=== PATIENT | female | born 1990 | race Caucasian/White ===

== ENCOUNTER 2019-07-29 11:09 | Emergency (ER) | payer OTHER, SELFPAY ==
[2019-07-29 11:21] VITALS: BP 123/76; PULSE 87; RESP 16; TEMP 37.1; O2SAT 99
--- NOTE | 2019-07-29 12:07 | ED.NAVMDI ---
HPI - Nausea/Vomiting/Diarrhea General Chief complaint: Nausea/Vomiting/Diarrhea Stated complaint: Stomach Pain Time Seen by Provider: 07/29/19 12:07 Source: patient Mode of arrival: ambulatory Limitations: no limitations History of Present Illness HPI Narrative: Kassandra Luque is a 28 yo female with PMH of PTSD, bipolar, who is here with N/V/D for 2 days. Pt states would like some zofran, work note to return to work Related Data Home Medications Medication Instructions Recorded Confirmed aripiprazole mg 06/26/19 bupropion HCl PO 06/26/19 ergocalciferol (vitamin D2) 06/26/19 sertraline mg 06/26/19 trazodone 06/26/19 norgestimate-ethinyl estradiol tablet 07/29/19 07/29/19 [Estarylla] Allergies Allergy/AdvReac Type Severity Reaction Status Date / Time codeine AdvReac Hyperactive Verified 06/26/19 10:58 Review of Systems Review of Systems: Narrative: CONSTITUTIONAL: Denies fever, chills, sweats. EYES: Denies visual changes, redness, discharge. ENT: Denies rhinorrhea, congestion, sore throat, otalgia. CARDIOVASCULAR: Denies chest pain, palpitations, edema. RESPIRATORY: Denies dyspnea, wheezing, cough GASTROINTESTINAL: Denies abdominal pain, nausea, vomiting, has diarrhea. GENITOURINARY: Denies dysuria, hematuria, abnormal discharge SKIN: Denies rash or itching. NEUROLOGIC: Denies numbness, or focal weakness. PSYCHIATRIC: Denies anxiety or depression. PMF Past Medical History Medical History Migraines Surgical History Surgical History History of cholecystectomy History of tonsillectomy and adenoidectomy Family History Family History Other No active medical problems Social History Social History Smoking status: Never smoker Gender identity (if verbalized by the patient): Female Comments At time of signature, I agree with nursing past medical, surgical, social and family history. There is no relevant family history pertinent to the presenting complaint. Exam Narrative: Exam Narrative: GENERAL: This is a well-nourished, well-developed patient, in no apparent distress. HEAD: normocephalic, atraumatic. EYES: Sclera clear/white. Vision is grossly intact. EARS: External ears normal,. Hearing grossly intact. NOSE: External nose normal with no obvious nasal discharge, nares without redness, no rhinorrhea. THROAT: Mucous membranes moist, posterior pharynx clear. NECK: Neck supple, non-tender without lymphadenopathy, CARDIOVASCULAR: Regular rate and rhythm without murmurs, gallops, or rubs. RESPIRATORY: Clear to auscultation. Breath sounds equal bilaterally. No wheezes, rales, or rhonchi. GASTROINTESTINAL: Abdomen soft, non-tender, nondistended. Bowel sounds are active. . No guarding. SKIN: warm, intact with no suspicious lesions or rash, good texture and turgor. NEURO: awake, alert, and oriented to person, place and time. There were no obvious focal neurologic abnormalities. Steady gait EXTREMITIES: Normal range of motion. No edema. BACK: Nontender without deformity or crepitance. No flank tenderness. Course Course Emergency Course: Reviewed history of illness, given Zofran, return to work note Vital Signs Vital signs: Vital Signs Temperature 98.8 F 07/29/19 11:21 Pulse Rate 87 07/29/19 11:21 Respiratory Rate 16 07/29/19 11:21 Blood Pressure 123/76 07/29/19 11:21 Pulse Oximetry 99 07/29/19 11:21 Temperature 98.8 F 07/29/19 11:21 Pulse Rate 87 07/29/19 11:21 Respiratory Rate 16 07/29/19 11:21 Blood Pressure 123/76 07/29/19 11:21 Pulse Oximetry 99 07/29/19 11:21 MDM - Nausea/Vomiting/Diarrhea Differential Diagnosis Differential diagnosis: Likely gastroenteritis, dehydration and other Discharge Plan Discharge
== END 2019-07-29 12:22 | disposition home or self-care (01) ==
PROVIDERS: Emergency Provider Nurse Practitioner
DX: R19.7 Diarrhea, unspecified (principal); F43.10 Post-traumatic stress disorder, unspecified; F41.9 Anxiety disorder, unspecified; F32.9 Major depressive disorder, single episode, unspecified
CPT/HCPCS: 99213; G0463